=== PATIENT | female | born 1940 | race Caucasian/White ===

== ENCOUNTER 2016-10-31 12:12 | Emergency (ER) | payer MEDICARE ==
[2016-10-31 12:44] LABS: BASOPHIL 0.2 % (0-2); EOSINOPHIL 0 % (0-7); HCT 35.7 % (37.0-47.0); HGB 11.3 g/dl (12.5-16.0); LYMPHOCYTE 32.8 % (15-48); MCH 24.1 pg (25.0-31.0); MCHC 31.7 g/dL (32.0-36.0); MCV 76.1 fL (78.0-100.0); MONOCYTE 10.6 % (0-12); MPV 10.4 fL (6.0-9.5); NEUTROPHIL 56.4 % (41-80); PLT 295 K/uL (150-400); RBC 4.69 M/uL (4.20-5.40); RDW 16.1 % (11.5-14.0); WBC 5.5 K/uL (4.0-10.5)
[2016-10-31 12:51] LABS: INR 1.64 (0.9-1.2); PROTHROMBIN TIME 18.9 SECONDS (11.7-14.0); PTT 31.4 SECONDS (23.2-31.4)
[2016-10-31 13:20] LABS: BILIRUBIN - TOTAL 0.7 mg/dL (0.1-1.0); CREATININE 1.1 mg/dL (0.5-1.0); MAGNESIUM 2.18 mg/dL (1.40-2.10); POTASSIUM 4.8 mmol/L (3.5-5.1)
[2016-10-31 13:21] LABS: CKMB 3.43 ng/mL (0.97-4.94); MYOGLOBIN 96 ng/mL (26-65); TROPONIN T < 0.010 ng/mL
[2016-10-31 13:24] LABS: PRO-BNP 15020 pg/mL (0-450)
== END 2016-10-31 16:45 | disposition home or self-care (01) ==
LOC: FER 12:12
PROVIDERS: Internal Medicine
DX: M94.0 Chondrocostal junction syndrome [Tietze] (principal); I25.10 Atherosclerotic heart disease of native coronary artery without angina pectoris; I25.2 Old myocardial infarction; Z79.01 Long term (current) use of anticoagulants; Z79.899 Other long term (current) drug therapy; Z91.030 Bee allergy status
CPT/HCPCS: 36415; 71010; 80053; 82550; 82553; 83735; 83874; 83880; 84484; 85025; 85610; 85730; 93005